=== PATIENT | male | born 1970 | race Caucasian/White ===

== ENCOUNTER 2019-03-16 22:42 | Emergency (ER) | payer MEDICAID ==
[2019-03-16 22:52] VITALS: TEMP 97.7
[2019-03-16] MEDS ORDERED: LIDOCAINE 1% INJ 10MG/ML (20 ML MDV) SQ ONE ×2 (23:41)
[2019-03-16] MEDS ORDERED: WATER FOR IRRIG, STERILE 1,000 ML BTL IRRIGATION ONE (23:41)
--- NOTE | 2019-03-17 | ED ---
Fall HPI - General Chief Complaint: Fall Stated Complaint: Fall Time Seen by Provider: 03/16/19 22:59 Source: patient, family, EMS Mode of arrival: EMS - History of Present Illness Initial Comments: 48 year-old male patient percents to the emergency department today for evaluation after experiencing a fall. Patient was at a wedding this evening and does admit to drinking several beers. Patient was found by his in a hotel ruminating over the sink bleeding from the scalp. When asked what happened patient states he did not know. Patient states he does not remember a fall or any injury. Patient has a large laceration to the left scalp. He denies any headache, blurred vision, double vision, nausea, vomiting, neck pain, or back pain. Denies any other injuries. Patient denies any use of anticoagulant or antiplatelet medications. States his last tetanus vaccine was 3 years ago. He denies any illicit drug use. Patient denies any chest pain, shortness of breath, dizziness, weakness, abdominal pain, or difficulties with bowel movements or urination. - Related Data Home Medications Medication Instructions Recorded Confirmed amLODIPine BESYLATE/BENAZEPRIL 1 cap PO DAILY 03/16/19 03/16/19 [Lotrel 5-10 MG] Allergies Allergy/AdvReac Type Severity Reaction Status Date / Time Penicillins Allergy Unknown Verified 03/16/19 23:03 Review of Systems ROS Statement: Those systems with pertinent positive or pertinent negative responses have been documented in the HPI. ROS Other: All systems not noted in ROS Statement are negative. Past Medical History Past Medical History: Hypertension, Seizure Disorder Additional Past Medical History / Comment(s): Last seizure disorder 20 years ago. Additional Past Surgical History / Comment(s): vasectomy General Exam Limitations: altered mental status General appearance: alert, in no apparent distress, appears intoxicated, other (Physical well-developed, well-nourished adult male patient in no acute distress. Vital signs upon presentation are temperature 97.7F, pulse 94, respirations 18, blood pressure 131/96, pulse ox 100% on room air.) Head exam: Present: normocephalic, other (10 cm laceration noted to the left frontal scalp). Absent: atraumatic Eye exam: Present: normal appearance, PERRL, EOMI. Absent: scleral icterus, conjunctival injection, nystagmus, periorbital swelling ENT exam: Present: normal exam, normal oropharynx, mucous membranes moist Neck exam: Present: normal inspection, other (No tenderness, bony step-off, or deformity noted to midline palpation of the posterior cervical spine). Absent: tenderness, meningismus, full ROM (Hard c-collar in place), lymphadenopathy Respiratory exam: Present: normal lung sounds bilaterally. Absent: respiratory distress, wheezes, rales, rhonchi, stridor Cardiovascular Exam: Present: regular rate, normal rhythm, normal heart sounds. Absent: systolic murmur, diastolic murmur, rubs, gallop, clicks GI/Abdominal exam: Present: soft, normal bowel sounds. Absent: distended, tenderness, guarding, rebound, rigid Extremities exam: Present: normal inspection, full ROM, normal capillary refill. Absent: tenderness, pedal edema, joint swelling, calf tenderness Back exam: Present: normal inspection, other (Nontender, no step-off, no deformity to firm midline palpation of the thoracic and lumbar vertebrae. Full range of motion without pain or limitation.). Absent: vertebral tenderness Neurological exam: Present: alert, oriented X3, CN II-XII intact Psychiatric exam: Present: normal affect, normal mood Skin exam: Present: warm, dry, intact, normal color. Absent: rash Course Vital Signs 03/16/19 03/17/19 22:45 01:35 Temperature 97.7 F Pulse Rate 94 98 Respiratory 18 16 Rate Blood Pressure 131/96 114/83 O2 Sat by Pulse 100 97 Oximetry Medical Decision Making - Medical Decision Making 48 year-old male patient presented to the emergency department today for evaluation of head injury and laceration. Patient was found bleeding in his hotel room by his . Patient does not recall the injury. Physical examination did reveal a 10 cm laceration to the left frontal scalp. Patient was wearing c-collar upon arrival. Did perform CT of the brain and C-spine which were negative for any acute abnormalities. Did repair the laceration as documented. Patient's tetanus was up-to-date. He'll be discharged with this time to follow-up with his primary care physician for recheck in 1-2 days. He is educated regarding wound care. is educated regarding signs or symptoms of worsening head injury. Patient did exhibit repetitive questioning, however it is unclear if from concussion or alcohol intoxication. I did discuss diagnosis and restrictions of concussion with the patient's . They're instructed to return for suture removal in 7 days. Return parameters were discussed in detail. They verbalize understanding and agree with this plan. - Radiology Data Radiology results: report reviewed, image reviewed CT brain and C-spine was performed without contrast. Report was reviewed in its entirety. Impression by Dr. Oropeza shows no acute intracranial process. No acute fracture or subluxation of the cervical spine. Disposition Clinical Impression: Scalp laceration, Concussion, Alcohol intoxication Disposition: HOME SELF-CARE Condition: Good Instructions (If sedation given, give patient instructions): Care For Your Stitches (ED), Laceration (ED), Concussion (ED), Alcohol Intoxication (ED) Additional Instructions: Keep wound clean and dry. Cleanse twice daily with warm water and antibacterial soap. Monitor for signs of infection including but not limited to redness, swelling, drainage of pus, fever, or chills. Monitor for signs of worsening head injury including confusion, vomiting, severe headache, or altered mental status. Follow-up with the primary care physician for recheck in 1-2 days. Return for removal of stitches in 7 days. Return to the emergency department for any other new, worsening, or concerning symptoms. Is patient prescribed a controlled substance at d/c from ED?: No Referrals: Juno Corado MD [Primary Care Provider] - 1-2 days Time of Disposition: 01:35
--- NOTE | 2019-03-17 00:41 | CT ---
EXAM: CT Head Without Intravenous Contrast CLINICAL HISTORY: ITS.REASON CT Reason: Pain TECHNIQUE: Axial computed tomography images of the head/brain without intravenous contrast. CTDI is 45 mGy and DLP is 1008 mGy-cm. This CT exam was performed using one or more of the following dose reduction techniques: automated exposure control, adjustment of the mA and/or kV according to patient size, and/or use of iterative reconstruction technique. COMPARISON: No relevant prior studies available. FINDINGS: Brain: No hemorrhage, large hypodensity, or mass effect. Ventricles: No hydrocephalus. Bones/joints: Unremarkable. Soft tissues: Unremarkable. Sinuses: Unremarkable. Mastoid air cells: Clear. IMPRESSION: No acute hemorrhage, hydrocephalus, or mass effect. EXAM: CT Cervical Spine Without Intravenous Contrast CLINICAL HISTORY: ITS.REASON CT Reason: Pain TECHNIQUE: Axial computed tomography images of the cervical spine without intravenous contrast. CTDI is 13 mGy and DLP is 328 mGy-cm. This CT exam was performed using one or more of the following dose reduction techniques: automated exposure control, adjustment of the mA and/or kV according to patient size, and/or use of iterative reconstruction technique. COMPARISON: No relevant prior studies available. FINDINGS: Vertebrae: No acute fracture. Discs/spinal canal/neural foramina: No high grade spinal canal stenosis. Soft tissues: Unremarkable. IMPRESSION: No acute fracture or subluxation.
[2019-03-17 01:36] VITALS: BP 114/83; PULSE 98; RESP 16
== END 2019-03-17 01:41 | disposition home or self-care (01) ==
LOC: EC 22:42
DX: S01.81XA Laceration without foreign body of other part of head, initial encounter (principal); S06.0X0A Concussion without loss of consciousness, initial encounter; F10.129 Alcohol abuse with intoxication, unspecified; I10 Essential (primary) hypertension; Z79.899 Other long term (current) drug therapy; Z88.0 Allergy status to penicillin; W19.XXXA Unspecified fall, initial encounter; Y92.59 Other trade areas as the place of occurrence of the external cause
CPT/HCPCS: 72125; 70450; 99284; 12015; J2001